=== PATIENT | male | born 1985 | race Caucasian/White ===

== ENCOUNTER 2016-12-19 07:36 | Emergency (ER) | payer SELFPAY ==
[~2016-12-19] VITALS: Ht 170.2 cm; Wt 85.9 kg
[2016-12-19 07:50] VITALS: BP 156/78
== END 2016-12-19 11:13 | disposition left against medical advice (07) ==
LOC: EME 07:36
DX: M54.9 Dorsalgia, unspecified (principal); Z53.21 Procedure and treatment not carried out due to patient leaving prior to being seen by health care provider